=== PATIENT | male | born 1990 | race Caucasian/White ===

== ENCOUNTER 2019-03-23 17:29 | Emergency (ER) | payer SELFPAY ==
[~2019-03-23] VITALS: Ht 177.8 cm; Wt 100.0 kg
[2019-03-23 20:23] VITALS: BP 135/74
== END 2019-03-23 21:46 | disposition home or self-care (01) ==
LOC: ER 19:52
DX: S00.03XA Contusion of scalp, initial encounter; R41.3 Other amnesia; Y04.0XXA Assault by unarmed brawl or fight, initial encounter; Y93.89 Activity, other specified; Y92.89 Other specified places as the place of occurrence of the external cause
CPT/HCPCS: 70486; 99284